=== PATIENT | male | born 2005 | race Caucasian/White ===

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

== ENCOUNTER 2024-10-12 06:35 | Emergency (ER) | payer SELFPAY ==
[2024-10-12 06:37] VITALS: BP 133/90; PULSE 79; RESP 16; TEMP 36.5; O2SAT 100
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
[2024-10-12] MEDS: Ibuprofen 800 MG TAB PO (06:56)
[2024-10-12] MEDS: Acetaminophen 325 MG TAB 650 MG PO (06:57)
== END 2024-10-12 07:01 | disposition home or self-care (01) ==
PROVIDERS: Emergency Provider Student in an Organized Health Care Education/Training Program
DX: M79.671 Pain in right foot (principal)
CPT/HCPCS: 99283